=== PATIENT | female | born 1965 | race Caucasian/White ===

== ENCOUNTER 2025-07-07 13:05 | Emergency (ER) | payer MEDICARE ==
[~2025-07-07] VITALS: Ht 170.2 cm; Wt 54.7 kg
[2025-07-07 13:40] LABS: MEAN PLATELET VOLUME 7.6 FL (7.4-10.4); RED CELL DISTRIBUTION WIDTH 13.7 % (11.5-14.5)
[2025-07-07 14:05] LABS: CREATININE 0.80 MG/DL (0.40-0.90); TOTAL CARBON DIOXIDE 24.5 MMOL/L (24-32); eCRCL 65 ML/MIN; eGFR 73 ML/MIN
[2025-07-07] MEDS ORDERED: iohexol 300mg/ml 100ml inj. ONE (15:23)
[2025-07-07] MEDS: LIDOcaine 2% Viscous 15ml cup MM STA (16:10)
[2025-07-07] MEDS: mag hydrox/Alum hydrox/simeth 30ml oral suspension PO STA (16:10)
[2025-07-07] MEDS: pantoprazole 40mg Tablet.DR PO STA (16:10)
--- NOTE | 2025-07-07 16:11 | RADIOLOGY REPORT ---
Indication: LUQ abd pain Technique: CT axial images of the abdomen and pelvis are obtained with intravenous contrast. Coronal and sagittal reformats were obtained. Radiation Dose Information: CTDI volume is 8 mGy. Dose-length product is 375 mGy*cm Comparison: None FINDINGS: Lung bases demonstrate no pleural effusion. Adrenal glands, spleen, pancreas unremarkable. Cholecystectomy. No enhancing hepatic lesion. No hydronephrosis. Stomach partially distended. Small bowel loops are demonstrating fecal like contents. Colonic diverticula. Moderate to large volume stool throughout the colon. No secondary signs for appendicitis. Abdominal aortic atherosclerotic disease. Bladder is partially distended. No free pelvic fluid. No inguinal lymphadenopathy. Moderate to advanced lumbar degenerative disc disease L4-5 and L5-S1.4 mm anterolisthesis L3 upon L4. Elevation left hemidiaphragm. IMPRESSION: Moderate to large volume stool within the colon. Fecal like contents within the small bowel which can be seen with ileus, hypomotility, bowel obstruction. Elevation left hemidiaphragm. Cholecystectomy. Other findings as described.
[2025-07-07 16:29] LABS: LEUKOCYTE ESTERASE ,URINE NEGATIVE (Neg); NITRITES, URINE NEGATIVE (Neg); OCCULT BLOOD,URINE NEGATIVE (Neg)
[2025-07-07 16:30] LABS: URINE HCG NEGATIVE (NEG)
[2025-07-07 16:35] LABS: UA COLLECTION TYPE CLN CATCH MIDSTREAM
[2025-07-07] MEDS ORDERED: ATOR40TA72 PO (16:56)
[2025-07-07] MEDS ORDERED: OXYB5TAB21 PO (16:56)
[2025-07-07] MEDS ORDERED: ARMO250T6 (16:56)
[2025-07-07] MEDS ORDERED: LITH300T3 (16:56)
[2025-07-07] MEDS ORDERED: BUPR-726 PO (16:56)
[2025-07-07] MEDS ORDERED: LAMO100T PO (16:56)
[2025-07-07] MEDS ORDERED: CLON1TAB12 PO (16:56)
--- NOTE | 2025-07-07 18:17 | Physician Documentation ---
History of Present Illness Chief Complaint: Abdominal Pain Stated Complaint: ABD PAIN Time Seen by MD: 18:03 Mode of Arrival: Ambulatory HPI Patient is seen today with complaints of generalized abdominal discomfort and pain. Patient states that she has had history of chronic constipation. She states she did have a very small bowel movement today was this morning with very small amount of hard stool. She denies any chest pain or shortness of breath or nausea or vomiting or diarrhea. Patient states she does have a significant amount of GI upset after eating meals. She states she has not eaten much over the last few days ago. She has no other concern or complaint at this time. Medication Reconciliation Allergies: Coded Allergies: azithromycin (Verified Allergy, Unknown, 07/07/25) sertraline (Verified Allergy, Unknown, 07/07/25) Scheduled Atorvastatin Calcium (Atorvastatin Calcium), 1 TAB PO DAILY, (Reported) Bupropion HCl (Bupropion Xl), 1 TAB PO DAILY, (Reported) Lamotrigine (LaMICtal tablet), 1 TAB PO BID, (Reported) Oxybutynin Chloride (Oxybutynin Chloride), 1 TAB PO Q12H, (Reported) Scheduled PRN Clonazepam (Clonazepam), 1 TAB PO BID PRN for anxiety, (Reported) Miscellaneous Medications Armodafinil (Armodafinil), (Reported) Wentworth Carbonate (lithium carbonate tablet), (Reported) Review of Systems Constitutional: Denies: chills, fever, weakness Eyes: Denies: pain, blurred vision ENT: Denies: ear pain, nose pain, throat pain, mouth pain Respiratory: Denies: cough, shortness of breath Cardiovascular: Denies: chest pain, palpitations Gastrointestinal: Denies: abdominal pain, nausea, vomiting Genitourinary: Denies: burning, dysuria Female Genitalia: Denies: vaginal discharge, pelvic pain Neurological: Denies: headache, dizziness Musculoskeletal: Denies: pain, swelling Integumentary: Denies: rash, lesions Allergic/Immunologic: Denies: hives, itching Hematologic/Lymphatic: Denies: no symptoms reported Psychiatric: Denies: depression, anxiety Physical Exam Vital Signs: Temperature: 97.5, Source: Oral, Heart Rate: 85, Respiratory Rate: 18, BP: 127/64, Pulse Oximetry: 100, Weight: 54.700 Oxygen Flow Rate: 0 Physical Exam General: Awake and Alert, no acute distress. HEENT: Conjunctiva pink, Sclera clear, Mucus Membranes moist. Neck: Supple without masses and tenderness. Resp: Unlabored. Lungs clear to auscultation bilaterally. Heart: Regular Rate and rhythm, normal S1 and S2 without murmur, rub or gallop. Abdomen: Abdomen is soft, nondistended, no masses, minimal tenderness to palpation in the left upper quadrant without guarding and without rebound tenderness. Extremities: No cyanosis,clubbing or edema. Skin: Warm and Dry. Progress Results/Orders Results/Orders Orders - BO LEIGH PAC Saline Lock (07/07/25 ) Ct Abdomen Pelvis (07/07/25 15:34) Completed Orders - BO LEIGH PAC Mag & Alum Hydrox/Simeth Susp (Maalox Or (07/07/25 15:07) Lidocaine 2% Viscous (Xylocaine 2% Visco (07/07/25 15:07) Pantoprazole Tablet (Protonix) (07/07/25 15:07) Ct Abdomen Pelvis (07/07/25 15:34) Medications Received in ER Medications (Trade) Dose Ordered Sig/Rhonda Route PRN Reason Start Time Stop Time Status Last Admin Dose Admin (Maalox oral suspension) 30 ml ONCE STAT PO 07/07/25 15:07 07/07/25 15:18 DC 07/07/25 16:10 30 ML (Xylocaine 2% Viscous 15mL cup) 15 ml ONCE STAT MM 07/07/25 15:07 07/07/25 15:18 DC 07/07/25 16:10 15 ML (Protonix) 40 mg ONCE STAT PO 07/07/25 15:07 07/07/25 15:18 DC 07/07/25 16:10 40 MG Vital Signs 07/07/25 07/07/25 13:09 16:17 Temp 97.5 Pulse 106 85 Resp 16 18 B/P (MAP) 127/76 127/64 (85) Pulse Ox 100 100 O2 Flow Rate 0 Laboratory Tests Test 07/07/25 13:28 07/07/25 16:11 White Blood Count 7.2 Red Blood Count 5.00 Hemoglobin 15.9 Hematocrit 47.0 H Mean Corpuscular Volume 94.0 Mean Corpuscular Hemoglobin 31.7 H Mean Corpuscular Hemoglobin Concent 33.7 Red Cell Distribution Width 13.7 Platelet Count 346 Mean Platelet Volume 7.6 Neutrophils (%) (Auto) 60.8 Lymphocytes (%) (Auto) 28.7 Monocytes (%) (Auto) 4.1 Eosinophils (%) (Auto) 5.2 Basophils (%) (Auto) 1.2 H Neutrophils # (Auto) 4.4 Lymphocytes # (Auto) 2.1 Monocytes # (Auto) 0.3 Eosinophils # (Auto) 0.4 Basophils # (Auto) 0.1 CBC Comment Sodium Level 136 Potassium Level 4.5 Chloride Level 102 Carbon Dioxide Level 24.5 Anion Gap 10 Blood Urea Nitrogen 17 Creatinine 0.80 Estimated GFR/1.73 m2 73 BUN/Creatinine Ratio 21.3 H Glucose Level 140 H Calcium Level 9.6 Total Bilirubin 0.7 Aspartate Amino Transf (AST/SGOT) 21 Alanine Aminotransferase (ALT/SGPT) 30 Alkaline Phosphatase 124 H Total Protein 8.0 Albumin 4.3 Globulin 3.7 Albumin/Globulin Ratio 1.2 Lipase 33 Chemistry Comments Urine Specimen Description Cln catch midstream Urine Color Yellow Urine Clarity Clear Urine pH 7.0 Urine Specific [place] 1.010 Urine Protein Negative Urine Glucose (UA) Negative Urine Ketones Negative Urine Occult Blood Negative Urine Nitrite Negative Urine Bilirubin Negative Urine Urobilinogen 1.0 Urine Leukocyte Esterase Negative Urine Culture Indicated Not ind Volume Urine Centrifuged 10 ml Urine HCG, Qualitative Negative Urine Comment Medical Decision Making Findings Patient is seen today with complaints of generalized abdominal discomfort and pain. Patient states that she has had history of chronic constipation. She states she did have a very small bowel movement today was this morning with very small amount of hard stool. She denies any chest pain or shortness of breath or nausea or vomiting or diarrhea. Patient states she does have a significant amount of GI upset after eating meals. She states she has not eaten much over the last few days ago. She has no other concern or complaint at this time. Patient did have CT scan of abdomen and pelvis that did show large burden of stool in the colon. Patient was given dose of senna tablets x2 and MiraLax dose in the ED today. Patient declined prescriptions for senna and MiraLax and enema and states she will pick them up [id number]. Patient will return to ED in 1-3 days if no better as needed sooner. Return to ED with any worsening, concerning or changing symptoms. Departure Disposition: 01 HOME / SELF CARE / HOMELESS Impression: Primary Impression: Abdominal pain Qualified Codes: R10.12 - Left upper quadrant pain Additional Impression: Constipation Qualified Codes: K59.00 - Constipation, unspecified Condition: Stable Discharge Instructions: Constipation, Adult, [id number] Additional Instructions: Patient did have CT scan of abdomen and pelvis that did show large burden of stool in the colon. Patient was given dose of senna tablets x2 and MiraLax dose in the ED today. Patient declined prescriptions for senna and MiraLax and enema and states she will pick them up [id number]. Patient will return to ED in 1-3 days if no better as needed sooner. Return to ED with any worsening, concerning or changing symptoms. Referrals: NO PRIMARY CARE PROVIDER (PCP) Signature Scribe Signature: No scribe Attestation: No scribe BO LEIGH PAC Jul 07, 2025 18:17
[2025-07-07] MEDS: polyethylene glycol 3350 17gm powd pack PO STA (18:18)
[2025-07-07 18:20] VITALS: BP 139/55; PULSE 83; RESP 16; TEMP 98; O2SAT 99
== END 2025-07-07 18:37 | disposition home or self-care (01) ==
LOC: ER 13:06
DX: K59.00 Constipation, unspecified (principal); R10.12 Left upper quadrant pain; Z88.1 Allergy status to other antibiotic agents; Z88.8 Allergy status to other drugs, medicaments and biological substances; Z79.899 Other long term (current) drug therapy
CPT/HCPCS: 36415; 74177; 80053; 81003; 81025; 83690; 85025; 99285; Q9967